=== PATIENT | male | born 1985 | race Caucasian/White ===

== ENCOUNTER 2019-04-12 02:56 | Emergency (ER) | payer BC, SELFPAY ==
[2019-04-12 02:55] VITALS: BP 126/56; PULSE 110; RESP 12; TEMP 36.7; O2SAT 96
[2019-04-12 03:00] VITALS: BP 127/65; PULSE 105; PULSE 111; RESP 14; O2SAT 98
--- NOTE | 2019-04-12 03:00 | ECG_ITS ---
Measurements Intervals [place] Rate: 100 P: 75 AL: 143 QRS: 78 QRSD: 94 T: 30 QT: 325 QTc: 420 Interpretive Statements SINUS TACHYCARDIA VOLTAGE CRITERIA FOR LVH MINIMAL Q WAVES- INFERIOR LEADS BORDERLINE ECG Electronically Signed On 04-12-2019 6:25:52 [employer] by Calixto Lewis D.O.
--- NOTE | 2019-04-12 03:00 | ED.GENADULT ---
HPI - General Adult General Chief complaint: Unspecified Stated complaint: Dizziness Time Seen by Provider: 04/12/19 02:56 Source: patient and RN notes reviewed Mode of arrival: EMS Limitations: no limitations History of Present Illness HPI narrative: Pt is a y/o male who presents to the ED, via EMS, with c/o dizziness which began 3 days ago. He also reports heart palpitations and SOB. Pt has a current port in place. Pt states he is currently receiving treatment for endocarditis. He reports he was being treated at [facility], but was trying to go to [facility], but was unable to reach the hospital. He states he recently had his port changed at [facility]. Pt reports he is currently on antibiotics everyday which is administered by his nurse. He reports he was scheduled for a heart surgery, but he refused. Patient states that he has endocarditis. He states he has been told he needs open heart surgery but refuses surgery because he has been going through a lot lately. He is unable to tell me the name of the doctor that he sees but states that his mom is been giving him the antibiotics through his central line. Per EMS the patient was pulled over by police department. The patient had been under arrest when he told police he was try to go to the hospital and needed an ambulance because he felt like he was dying MD complaint: Dizziness Onset (ago): day(s) (3 days ago) Radiation: non-radiation Pain Consistency: constant Relieving factors: none Exacerbating factors: none Associated symptoms: shortness of breath and other (heart palpitations) Related Data Allergies Allergy/AdvReac Type Severity Reaction Status Date / Time latex Allergy Intermediate latex Verified 02/14/17 19:29 catheters cause prostatitis Review of Systems Review of Systems: All systems reviewed & are unremarkable except as noted in HPI and below Cardiovascular: Cardiovascular: Reports other (palpitations) Respiratory: Respiratory: Reports dyspnea Neurologic: Reports dizziness PMFSH Past Medical History Medical History (Updated 04/12/19 @ 03:37 by Emeterio Major DO) Endocarditis GERD (gastroesophageal reflux disease) Prostatitis Social History Social History (Updated 04/12/19 @ 03:02 by Radha Valencia) Smoking status: Current every day smoker Gender identity (if verbalized by the patient): Male Exam Narrative: Exam Narrative: APPEARANCE: No acute distress, nontoxic, resting in bed EYES: EOMI HEENT: Normocephalic, atraumatic, OMM Neck: Supple, triple-lumen central line going into the right neck, there is no surrounding erythema of the neck, all the ports of the central line are dirty in appearance RESPIRATORY: No respiratory distress Clear to auscultation bilaterally with no rhonchi wheezing or rales. CARDIOVASCULAR: Regular rate and rhythm with S3 gallop ABDOMINAL: Soft, nontender, nondistended, no rebound or guarding MUSCULOSKELETAl: Moves all extremities. No clubbing, cyanosis or edema. NEURO: Awake and alert. Following commands, speech normal, no focal deficits SKIN:: Warm, dry. No rashes lesions or abrasions PSYCHIATRIC: Normal affect/mood, Course Course Emergency Course: Patient's family is present. Patient states he is wishing to leave AGAINST MEDICAL ADVICE. States he is wishing to go down to [facility]. Discussed with patient the risks of leaving AGAINST MEDICAL ADVICE including permanent disability and sepsis. Patient understands at this time. Refusal form was filled out. Patient was instructed he may return anytime for further evaluation Vital Signs Vital signs: Vital Signs Temperature 98.1 F 04/12/19 02:55 Pulse Rate 110 H 04/12/19 02:55 Respiratory Rate 12 04/12/19 02:55 Blood Pressure 126/56 L 04/12/19 02:55 Pulse Oximetry 96 04/12/19 02:55 Temperature 98.1 F 04/12/19 02:55 Pulse Rate 110 H 04/12/19 02:55 Respiratory Rate 12 04/12/19 02:55 Blood Pres
[2019-04-12 03:20] VITALS: PULSE 107; RESP 20; O2SAT 99
[2019-04-12 03:31] VITALS: PULSE 109; RESP 17
== END 2019-04-12 03:31 | disposition left against medical advice (07) ==
LOC: ANHED 03:44
PROVIDERS: Emergency Provider Emergency Medicine
DX: R42 Dizziness and giddiness (principal); I38 Endocarditis, valve unspecified; K21.9 Gastro-esophageal reflux disease without esophagitis; N41.9 Inflammatory disease of prostate, unspecified; F17.200 Nicotine dependence, unspecified, uncomplicated; R00.0 Tachycardia, unspecified; R94.31 Abnormal electrocardiogram [ECG] [EKG]
CPT/HCPCS: 93005; 99283